=== PATIENT | female | born 1945 | race Caucasian/White ===

== ENCOUNTER 2022-10-12 13:43 | Outpatient (REF) | payer MEDICARE, OTHER, SELFPAY ==
[2022-10-13 13:09] LABS: Influenza A PCR POSITIVE (Negative); Influenza B PCR NEGATIVE (Negative); Resp Syncy Virus RNA Qual PCR NEGATIVE (Negative); SARS COV2 PCR INHOUSE NEGATIVE (Negative)
== END 2022-10-12 13:44 | disposition home or self-care (01) ==
LOC: HO.LNP 13:43
PROVIDERS: Visit Provider Nurse Practitioner Family
DX: Z20.822 Contact with and (suspected) exposure to COVID-19 (principal); J20.9 Acute bronchitis, unspecified
CPT/HCPCS: 0241U

== ENCOUNTER 2023-08-28 16:52 | Emergency (ER) | payer MEDICARE, OTHER, SELFPAY ==
--- NOTE | ~2023-08-28 | CT_ITS ---
EXAMINATION: CT HEAD WITHOUT CONTRAST CT CERVICAL SPINE WITHOUT CONTRAST. CLINICAL INFORMATION: Head strike. On Plavix. COMPARISON: No relevant prior imaging. TECHNIQUE: Airplane Gas Tank Liner Assembler images were obtained. CT imaging of the head and cervical spine was performed without contrast. Data was reformatted into multiplanar images at the acquisition workstation. This CT examination was performed using dose optimization techniques as appropriate, including one or more of the following: Automated exposure control, iterative reconstruction, and adjustment of technique factors (mA and/or kVp) according to patient size (this includes techniques or standardized protocols for targeted exams where dose is matched to indication/reason for exam). Fleischner Society criteria for the followup of incidental pulmonary nodules was implemented if appropriate. DLP: 785 mGy-cm. FINDINGS: Head: There is no acute intracranial hemorrhage or abnormal extra-axial collection. No intracranial mass effect or midline shift. Lateral and third ventricles are normal. No hydrocephalus. Laguna-white matter differentiation is preserved and there is no evidence of acute territorial infarct. The calvarium and skull base are intact. Mastoid air cells and middle ear cavities are well-aerated. No active paranasal sinus disease. Cervical spine: There is nonspecific reversal of the cervical lordosis. Alignment is otherwise normal. Vertebral heights are preserved. There is no acute fracture. No abnormal prevertebral soft tissue swelling. 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 There is loss of intervertebral disc height with associated sclerotic degenerative endplate changes and hypertrophic disc osteophyte spurring at multiple levels. Grossly no spinal canal compromise. Uncovertebral joint spurring in conjunction with facet degenerative change causes mild to moderate neuroforaminal encroachment at multiple levels. Visualized soft tissues of neck are normal. Lung apices are clear. CT/CT head/brain wo IV con IMPRESSION: Head: No acute intracranial hemorrhage. Cervical Spine: There is multilevel degenerative spondylosis of the cervical spine. No acute fracture and no posttraumatic spinal subluxation.
--- NOTE | ~2023-08-28 | CT_ITS ---
EXAMINATION: CT HEAD WITHOUT CONTRAST CT CERVICAL SPINE WITHOUT CONTRAST. CLINICAL INFORMATION: Head strike. On Plavix. COMPARISON: No relevant prior imaging. TECHNIQUE: Backer Up images were obtained. CT imaging of the head and cervical spine was performed without contrast. Data was reformatted into multiplanar images at the acquisition workstation. This CT examination was performed using dose optimization techniques as appropriate, including one or more of the following: Automated exposure control, iterative reconstruction, and adjustment of technique factors (mA and/or kVp) according to patient size (this includes techniques or standardized protocols for targeted exams where dose is matched to indication/reason for exam). Fleischner Society criteria for the followup of incidental pulmonary nodules was implemented if appropriate. DLP: 785 mGy-cm. FINDINGS: Head: There is no acute intracranial hemorrhage or abnormal extra-axial collection. No intracranial mass effect or midline shift. Lateral and third ventricles are normal. No hydrocephalus. Laguna-white matter differentiation is preserved and there is no evidence of acute territorial infarct. The calvarium and skull base are intact. Mastoid air cells and middle ear cavities are well-aerated. No active paranasal sinus disease. Cervical spine: There is nonspecific reversal of the cervical lordosis. Alignment is otherwise normal. Vertebral heights are preserved. There is no acute fracture. No abnormal prevertebral soft tissue swelling. 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 There is loss of intervertebral disc height with associated sclerotic degenerative endplate changes and hypertrophic disc osteophyte spurring at multiple levels. Grossly no spinal canal compromise. Uncovertebral joint spurring in conjunction with facet degenerative change causes mild to moderate neuroforaminal encroachment at multiple levels. Visualized soft tissues of neck are normal. Lung apices are clear. CT/CT cervical spine wo IV con IMPRESSION: Head: No acute intracranial hemorrhage. Cervical Spine: There is multilevel degenerative spondylosis of the cervical spine. No acute fracture and no posttraumatic spinal subluxation.
[2023-08-28 17:00] VITALS: BP 130/60; PULSE 64; RESP 20; TEMP 36.9; O2SAT 97; BMI 18.5
--- NOTE | 2023-08-28 17:01 | ED.GENADULT ---
HPI - General Adult General Chief complaint: Fall Stated complaint: fell 08/28 hit head, on thinners covid+ Time Seen by Provider: 08/28/23 19:37 Source: patient and family (patient's ) Mode of arrival: ambulatory Limitations: no limitations History of Present Illness HPI narrative: Patient is a 78 year old assigned female at with a history of anti coagulation medication use and COVID-19 infection presenting to the emergency department today after a fall. Patient states that she rolled out of bed and hit her head. Patient states that she did not have any loss of consciousness with the incident. Patient denies any dizziness, lightheadedness, abdominal pain, nausea, vomiting, fever, chills, blurry vision, double vision, loss of vision, chest pain, difficulty breathing, shortness of breath, back pain, night sweats, pain with urination, increased urinary frequency, increased urinary urgency, blood in her urine or stool, syncope or a near syncopal episode, bowel incontinence, bladder incontinence, bowel retention, bladder retention, or any other complaints at this time. Onset (ago): day(s) (1) Location: head Severity: mild Severity scale (1-10): 3 Quality: aching and dull Pain Consistency: constant Relieving factors: none Exacerbating factors: none Associated symptoms: denies other symptoms Treatments prior to arrival: none Related Data Home Medications Medication Instructions Recorded Confirmed atorvastatin 10 mg tablet mg PO DAILY 10/12/22 10/12/22 carvedilol 6.25 mg tablet mg PO BID 10/12/22 10/12/22 clopidogrel 75 mg tablet mg PO DAILY 10/12/22 10/12/22 levothyroxine 50 mcg tablet mcg PO DAILY 10/12/22 10/12/22 lisinopril 5 mg tablet mg PO DAILY 10/12/22 10/12/22 Previous Rx's Medication Instructions Recorded prednisone 20 mg tablet 40 mg (2 x 20 mg) PO DAILY 5 days 10/12/22 #10 tabs oseltamivir 75 mg capsule (Tamiflu) 75 mg PO BID 5 days #10 caps 10/13/22 Allergies Allergy/AdvReac Type Severity Reaction Status Date / Time No Known Allergies Allergy Verified 10/12/22 13:56 Review of Systems Constitutional: Constitutional: Reports no additional constitutional complaints, Denies chills, Denies fever(s), Reports headache(s) and Denies night sweats Eyes: Eyes: Reports no additional eye complaints, Denies blurry vision, Denies change in vision, Denies diplopia, Denies eye discharge, Denies loss of vision and Denies eye pain ENT: Denies dizziness and Reports headache(s) Cardiovascular: Cardiovascular: Reports no additional cardiovascular complaints, Denies chest pain, Denies lightheadedness, Denies Loss of Consciousness and Denies dyspnea Respiratory: Respiratory: Reports no additional respiratory complaints and Denies dyspnea Gastrointestinal: Gastrointestinal: Reports no additional gastrointestinal complaints, Denies abdominal pain, Denies melena, Denies hematochezia, Denies change in bowel habits and Denies change in stool character Genitourinary: Genitourinary: Denies hematuria, Denies urinary frequency, Denies dysuria, Denies urinary incontinence, Denies urinary hesitancy and Denies urinary urgency Musculoskeletal: Musculoskeletal: Reports no additional musculoskeletal complaints, Denies numbness and Denies tingling Neurologic: Denies dizziness, Reports headache(s), Denies loss of vision, Denies numbness and Denies tingling Psychiatric: Psychiatric: Reports no additional psychiatric complaints Endocrine: Endocrine: Reports no additional endocrine complaints Hematologic/Lymphatic: Hematologic/Lymphatic: Reports no additional hematologic/lymphatic complaints Allergic/Immunologic: Allergic/Immunologic: Reports no additional allergic/immunologic complaints PMFSH Past Medical History Attestation statement: The following information was validated with the patient. (all information validated with the patient's ) Source: old records reviewed, obtained from family (patient's provided additional history and confirmed the history provided by the patient.) and nursing notes reviewed Social History Social History Advance Directives: No Physical Exam ED Vital Signs: Vital Signs - 24 hr 08/28/23 17:00 Temperature 98.4 F Pulse Rate 64 Respiratory Rate 20 Blood Pressure 130/60 Pulse Oximetry 97 Oxygen Delivery Method Room Air BMI result Body Mass Index 18.5 Const General: cooperative, no acute distress, alert and awake Nutritional Appearance: well nourished Orientation/consciousness: patient oriented x3 Limitations: no limitations HENMT Head: Yes normal to inspection and Yes atraumatic Ears: hearing grossly normal bilaterally and external ears normal General nose exam: Normal external nose present, no nasal discharge noted and no epistaxis Face and sinus: Yes normal facial exam, No abrasion and No laceration Mouth: Normal oral and palatal mucosa present, no drooling and no muffled voice Eyes General: appearance normal, both eyes and all related structures Periorbital: periorbital findings normal Eyelids: Yes eyelids normal Conjunctivae: conjunctivae normal Pupils: Equal, round and reactive pupils present EOM: EOMs intact bilaterally Neck Neck: Yes normal visual inspection, Yes full ROM and Yes no lymphadenopathy Chest Chest palpation & inspection: normal inspection of the chest Resp Effort & Inspection: normal respiratory effort and able to speak in complete sentences GI Inspection: Yes normal to inspection Neuro General: patient oriented x3 and moves all extremities Cranial nerves: Yes Equal, round and reactive pupils present Cognition (Neuro): normal cognition Motor exam (neuro): 5/5 motor strength present throughout Sensory Exam: Normal double simultaneous stimulation for sensation Coordination: [id number] test normal Extrem General: Yes normal to inspection, Yes full ROM and Yes capillary refill normal Psych Appearance: grossly normal Mental Status: mental status grossly normal Affect: normal affect Attitude: cooperative Thought process: Normal thought process present Thought content: Normal thought content present Insight: Good insight present (Psych) Course Course Course Narrative: RME performed by Barbara Delgado PA-C. Patient is a 78 year old assigned female at presenting to the emergency department with a fall. Patient states that she is COVID+ and fell out of her bed, hitting her head. Imaging ordered. Patient placed back in the waiting room pending room availability and results. Medical Decision Making Medical Decision Making [facility] Narrative: Patient is a 78 year old assigned female at with a history of anticoagulation use presenting to the emergency department today after a fall. Patient's physical exam was unremarkable. Patient's head and c-spine CT showed no acute process. I explained my physical exam findings as well as all test results to the patient and the patient's . I answered all questions asked by the patient and the patient's . I stressed the importance of the patient taking her medication as prescribed. I stressed the importance of the patient following up with her primary care provider. I stressed the importance of the patient returning to the emergency department immediately if her symptoms were to worsen or if she were to develop any dizziness, shortness of breath, difficulty breathing, chest pain, blurry vision, loss of vision, nausea, vomiting, abdominal pain, fever, chills, back pain, or any other complaints. Patient and the patient's verbalized agreement and understanding with this treatment plan and discharge. Differential Diagnosis Differential Diagnoses: The differential diagnosis associated with the presentation includes Head strike Fall Concussion Independent Interpretation I performed an independent interpretation of an: CT Scan Interpretation: My interpretation is in agreement with the radiologist's impression of these imaging studies. EXAMINATION: CT HEAD WITHOUT CONTRAST CT CERVICAL SPINE WITHOUT CONTRAST. CLINICAL INFORMATION: Head strike. On Plavix. COMPARISON: No relevant prior imaging. TECHNIQUE: Databases Software Consultant images were obtained. CT imaging of the head and cervical spine was performed without contrast. Data was reformatted into multiplanar images at the acquisition workstation. This CT examination was performed using dose optimization techniques as appropriate, including one or more of the following: Automated exposure control, iterative reconstruction, and adjustment of technique factors (mA and/or kVp) according to patient size (this includes techniques or standardized protocols for targeted exams where dose is matched to indication/reason for exam). Fleischner Society criteria for the followup of incidental pulmonary nodules was implemented if appropriate. DLP: 785 mGy-cm. FINDINGS: Head: There is no acute intracranial hemorrhage or abnormal extra-axial collection. No intracranial mass effect or midline shift. Lateral and third ventricles are normal. No hydrocephalus. Laguna-white matter differentiation is preserved and there is no evidence of acute territorial infarct. The calvarium and skull base are intact. Mastoid air cells and middle ear cavities are well-aerated. No active paranasal sinus disease. Cervical spine: There is nonspecific reversal of the cervical lordosis. Alignment is otherwise normal. Vertebral heights are preserved. There is no acute fracture. No abnormal prevertebral soft tissue swelling. 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 There is loss of intervertebral disc height with associated sclerotic degenerative endplate changes and hypertrophic disc osteophyte spurring at multiple levels. Grossly no spinal canal compromise. Uncovertebral joint spurring in conjunction with facet degenerative change causes mild to moderate neuroforaminal encroachment at multiple levels. Visualized soft tissues of neck are normal. Lung apices are clear. CT/CT head/brain wo IV con IMPRESSION: Head: No acute intracranial hemorrhage. Cervical Spine: There is multilevel degenerative spondylosis of the cervical spine. No acute fracture and no posttraumatic spinal subluxation. Dictated By: Constantino Riddle MD Signed By: Electronically signed by Constantino Riddle MD 08/28/23 5042 Radiology Impression Discussion of test interpretation with radiology: I have reviewed the radiologist's reading. Independent Historian Clinical information obtained from an independent historian. History obtained from or confirmed by: Spouse (patient's provided additional history and confirmed the history provided by the patient. ) Discharge Plan Discharge Clinical Impression: Fall Patient Disposition: Home, Self-Care Instructions: Fall Prevention for Older Adults (ED) Additional Instructions: Follow up with your primary care provider. Return to the emergency department immediately if your symptoms worsen or if you develop any dizziness, shortness of breath, difficulty breathing, chest pain, blurry vision, loss of vision, nausea, vomiting, abdominal pain, fever, chills, back pain, or any other complaints. Prescriptions: No Action oseltamivir [Tamiflu] 75 mg capsule 75 mg PO BID 5 Days Qty: 10 0RF levothyroxine 50 mcg tablet PO DAILY carvedilol 6.25 mg tablet PO BID lisinopril 5 mg tablet PO DAILY atorvastatin 10 mg tablet PO DAILY clopidogrel 75 mg tablet PO DAILY prednisone 20 mg tablet 40 mg PO DAILY 5 Days Qty: 10 0RF Referrals: [facility] Family [facility] [Provider Group] (Call to establish and follow up with a primary care provider. If you already have a primary care provider, please follow up with them.) [facility] [Provider [facility]] (Call to establish and follow up with a primary care provider. If you already have a primary care provider, please follow up with them.) [facility] [Provider [facility]] (Call to establish and follow up with a primary care provider. If you already have a primary care provider, please follow up with them.) Print Language: Ukrainian
== END 2023-08-28 21:21 | disposition home or self-care (01) ==
PROVIDERS: Emergency Provider Emergency Medicine
DX: S09.90XA Unspecified injury of head, initial encounter (principal); U07.1 COVID-19; R51.9 Headache, unspecified; M54.2 Cervicalgia; W06.XXXA Fall from bed, initial encounter; Y93.9 Activity, unspecified; Y92.9 Unspecified place or not applicable; Y99.9 Unspecified external cause status; Z79.899 Other long term (current) drug therapy; Z79.01 Long term (current) use of anticoagulants
CPT/HCPCS: 70450; 72125; 99282; 99284

== ENCOUNTER 2024-08-17 10:33 | Emergency (ER) | payer MEDICARE, OTHER, SELFPAY ==
--- NOTE | ~2024-08-17 | CT_ITS ---
CT MAXILLOFACIAL WITHOUT IV CONTRAST, CT HEAD WITHOUT IV CONTRAST CLINICAL INFORMATION: fall COMPARISON: 2022 TECHNIQUE: Department standard protocol. This CT examination was performed using dose optimization techniques as appropriate, variously including the following: *Automated exposure control *Adjustment of mA and/or kV according to patient size (this includes techniques or standardized protocols for targeted exams where dose is matched to indication/reason for exam; i.e. extremities or head) *Use of iterative reconstruction technique DLP: 1040 mGy-cm FINDINGS: CEREBRAL HEMISPHERES: There is no evidence of intra-axial or extra-axial mass, hemorrhage or acute infarct. BRAIN PARENCHYMA: Normal song-white matter differentiation. SUBDURAL SPACE: No bleed. BASAL GANGLIA AND PINEAL GLAND: Unremarkable VENTRICLES: Symmetric and normal in size. CEREBELLUM AND BRAINSTEM: No space-occupying mass, hemorrhage or acute infarct. CEREBELLOPONTINE ANGLES: No lesion found. ORBITS: No intraorbital mass. VESSELS: Unremarkable SKULL BASE: Unremarkable INCLUDED SINUSES AT SKULL BASE: Clear SKULL AND SKIN: There is frontal extracalvarial subcutaneous hematoma roughly 4 cm wide left of midline, no associated skull fracture or intracranial bleed. EXAMINATION: CT FACIAL BONES CLINICAL INFORMATION: Fall COMPARISON: None TECHNIQUE: CT facial bones axial sagittal and coronal Department standard protocol. This CT examination was performed using dose optimization techniques as appropriate, variously including the following: *Automated exposure control *Adjustment of mA and/or kV according to patient size (this includes techniques or standardized protocols for targeted exams where dose is matched to indication/reason for exam; i.e. extremities or head) *Use of iterative reconstruction technique FINDINGS : SKULL BASE: Included structures at skull base are normal. BONES: Bones and skull base are intact., Orbital bones, and intra-abdominal orbital structures are normal., Both right and left nasal bone, nasal spine are intact., Maxillary sinuses and maxillary bones are intact., Right and left mandibles are normal., Zygomatic arches are intact., Included cervical vertebrae is are normal. ORBITS: Globes are symmetric. Orbital structures are normal. SALIVARY GLANDS: Unremarkable SINUSES: Clear CT/CT facial bones wo IV con IMPRESSION: 1. No CT evidence of intracranial bleed. 2. No maxillofacial fracture. 3. There is frontal extracalvarial subcutaneous hematoma roughly 4 cm wide left of midline, no associated skull fracture or intracranial bleed. Electronically signed by: Nida Romero MD 08/17/2024 12:53 PM EDT RP
--- NOTE | ~2024-08-17 | XR_ITS ---
EXAMINATION: XR FOREARM, LEFT CLINICAL INFORMATION: Fall. COMPARISON: None available. TECHNIQUE: AP and lateral views of the left forearm were obtained. FINDINGS: Significant soft tissue swelling over the soft tissues dorsal to the mid forearm, measuring up to approximately 2 cm in thickness by 10 cm in length. The bones appear unremarkable. No fracture identified. Imaged portions of the elbow and wrist appear unremarkable. XR/XR forearm LT 2V IMPRESSION: Findings as above. Electronically signed by: Rangel Rainey MD 08/17/2024 12:30 PM EDT
--- NOTE | ~2024-08-17 | CT_ITS ---
EXAMINATION: CT CERVICAL SPINE WITHOUT CONTRAST CLINICAL INFORMATION: Fall. COMPARISON: August 28, 2023. TECHNIQUE: CT of the head and cervical spine were performed without intravenous contrast. Multiplanar reformats were rendered and reviewed. This CT examination was performed using dose optimization techniques as appropriate, variously including the following: *Automated exposure control *Adjustment of mA and/or kV according to patient size (this includes techniques or standardized protocols for targeted exams where dose is matched to indication/reason for exam; i.e. extremities or head) *Use of iterative reconstruction technique DLP: 1040 mGy-cm FINDINGS: The vertebral body heights appear maintained. No cervical spine fracture is seen. Straightening of the normal cervical lordosis, probably positional. The cervical alignment otherwise appears normal. 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 Moderate multilevel disc degenerative change. Mild multilevel neuroforaminal narrowing, right slightly worse than left, most notable at C7-T1. The paraspinal soft tissues appear within normal limits. Mild biapical fibrotic changes of the lungs. CT/CT cervical spine wo IV con IMPRESSION: No cervical spine fracture or traumatic malalignment identified. Electronically signed by: Rangel Rainey MD 08/17/2024 12:46 PM EDT
[2024-08-17 10:47] VITALS: BP 115/95; PULSE 59; RESP 16; TEMP 36.6; O2SAT 99; BMI 18.7
--- NOTE | 2024-08-17 11:10 | ECG_ITS ---
Test Reason : SYNCOPE Blood Pressure : / mmHG Vent. Rate : 053 BPM Atrial Rate : 053 BPM P-R Int : 178 ms QRS Dur : 088 ms QT Int : 422 ms P-R-T Axes : 087 070 059 degrees QTc Int : 395 ms Sinus bradycardia Otherwise normal ECG No previous ECGs available Referred By: Tong Guillermo Electronically Signed By:VALERIA VILLA MD
--- NOTE | 2024-08-17 11:15 | ED.FALL ---
HPI - Fall General Chief Complaint: Fall Stated Complaint: fall facial and l and r arm inj on blood thinners Time Seen by Provider: 08/17/24 10:55 Source: patient and family ( Spouse) Mode of arrival: ambulatory Limitations: no limitations History of Present Illness ED Provider: DR. Guillermo HPI Narrative: 78-year-old female came in after she fell while she was exercising on the treadmill 930 this morning patient was getting to stop the machine when unexpectedly went faster patient fell forward was too fast to protect her fall causing multiple hematomas on the face and left forearm, no LOC, no blurry vision, no headache, no open active bleeding laceration , no neck pain, no weakness, no numbness. Patient is concerned because multiple hematomas on the left forearm and on the forehead And patient is taking Plavix. Related Data Home Medications ?Medication ?Instructions ?Recorded ?Confirmed atorvastatin 10 mg tablet mg PO DAILY 10/12/22 10/12/22 carvedilol 6.25 mg tablet mg PO BID 10/12/22 10/12/22 clopidogrel 75 mg tablet mg PO DAILY 10/12/22 10/12/22 levothyroxine 50 mcg tablet mcg PO DAILY 10/12/22 10/12/22 lisinopril 5 mg tablet mg PO DAILY 10/12/22 10/12/22 Previous Rx's ?Medication ?Instructions ?Recorded prednisone 20 mg tablet 40 mg (2 x 20 mg) PO DAILY 5 days 10/12/22 #10 tabs oseltamivir 75 mg capsule (Tamiflu) 75 mg PO BID 5 days #10 caps 10/13/22 Allergies Allergy/AdvReac Type Severity Reaction Status Date / Time amoxicillin Allergy Rash Verified 08/17/24 10:53 Review of Systems Review of Systems: all other systems are reviewed and are negative Constitutional: Reports as per HPI and Reports no additional constitutional complaints Eyes: Reports as per HPI and Reports no additional eye complaints Reports system reviewed and no additional complaints, except as documented Cardiovascular: Reports as per HPI and Reports no additional cardiovascular complaints Respiratory: Reports as per HPI and Reports no additional respiratory complaints Gastrointestinal: Reports as per HPI and Reports no additional gastrointestinal complaints Genitourinary: Reports no additional female genitourinary complaints Musculoskeletal: Reports no additional musculoskeletal complaints Skin/Breast: Reports system reviewed and no additional complaints, except as docu Psychiatric: Reports no additional psychiatric complaints Endocrine: Reports no additional endocrine complaints Hematologic/Lymphatic: Reports no additional hematologic/lymphatic complaints Allergic/Immunologic: Reports no additional allergic/immunologic complaints Reports system reviewed and no additional complaints, except as documented and Reports Abnormal speech present [facility] Social History Social History Advance Directives: No Advance Directives Information Provided: Yes Physical Exam Vital Signs: Vital Signs: Last Vital Signs Temp 97.9 F 08/17/24 10:47 Pulse 59 08/17/24 10:47 Resp 16 08/17/24 10:47 BP 115/95 H 08/17/24 10:47 Pulse Ox 99 08/17/24 10:47 O2 Del Method Room Air 08/17/24 10:47 BMI result Body Mass Index 18.7 Vital signs have been reviewed and appear to be correct. Blood pressure elevated. Heart rate normal. Respiratory rate normal. Temperature normal. Oxygen saturation normal. Appearance: Alert. Oriented X3. No acute distress. Head: Normal external exam. Normocephalic. 3 x 3 cm area of hematoma to left frontal area, superficial contusion to the nose, and forehead periods Eyes: PERRLA. EOMI. Conjunctiva and sclera normal. Eyelids normal. ENT: TM's Normal. Pharynx normal. Uvula midline. Moist mucous membranes. No trismus noted. No drooling noted. No muffled voice noted. Neck: Normal inspection. Neck supple. FROM. No adenopathy. Thyroid Normal. No meningeal signs. No neck mass noted. CVS: Normal heart rate and rhythm. Heart sound normal. No murmurs noted. Pulses normal throughout. Respiratory: No respiratory distress. Painless inspiration. Breath sounds normal. No wheezes/rales/rhonchi noted. Chest nontender. No accessory muscle usage noted or decreased air movement noted. Abdomen: Soft and nontender. Bowel sounds normal in all 4 quadrants. No distention noted. No organomegaly noted. No visible injury noted. Back: No CVA tenderness. Full range of motion noted. Skin: Skin warm and dry. Normal skin color. Normal skin turgor. No rashes/lesions/lacerations noted. Extremities: left mid forearm hematoma about 3 x 4 cm with no deformity, full range of motion, neurovascularly intact. Neuro: Oriented X 3. Cranial nerve exam: II-XII are grossly intact No motor deficit. No sensory deficit. Reflexes normal. Course Reevaluation(s) Reevaluation #1: GCS of 15, normal neuro exam, normal head/ C-spine CT, facial CT shows no facial fracture. Unremarkable labs/EKG. Patient received booster update of tetanus shot. Time: 14:00 Medical Decision Making Differential Diagnosis Differential Diagnoses: The differential diagnosis associated with the presentation includes ( Mechanical fall, syncope, ACS, coagulopathy, thrombocytopenia, severe anemia, electrolyte derangement, intracranial bleed, cervical spine injury, facial fracture.) Admission/Observation Consideration of admission/observation: Escalation of care including admission/observation considered Lab Data MDM Lab Attestation statement: I reviewed the patient's lab results. Independent Interpretation I performed an independent interpretation of an: CT Scan ( head/ facial/ C-spine CT: No acute injury or pathology.) Radiology Impression Discussion of test interpretation with radiology: I have reviewed the radiologist's reading. Discharge Plan Discharge Clinical Impression: Accident due to mechanical fall without injury, Hematoma of left forearm, Traumatic hematoma of forehead Patient Disposition: Home, Self-Care Instructions: Contusion in Adults (ED) Prescriptions: No Action oseltamivir [Tamiflu] 75 mg capsule 75 mg PO BID 5 Days Qty: 10 0RF levothyroxine 50 mcg tablet PO DAILY carvedilol 6.25 mg tablet PO BID lisinopril 5 mg tablet PO DAILY atorvastatin 10 mg tablet PO DAILY clopidogrel 75 mg tablet PO DAILY prednisone 20 mg tablet 40 mg PO DAILY 5 Days Qty: 10 0RF Referrals: Tino Hernandez MD [Primary Care Provider] - Print Language: Frisian
[2024-08-17] MEDS: Diphth,Pertus(ACell),Tet Adult 0.5 ML SYRINGE IM (11:24)
[2024-08-17 11:29] LABS: MANUAL DIFF FLAG NO
[2024-08-17 11:38] LABS: Basophils Absolute Auto 0.1 X10*3/uL (0.0-0.2); Basophils Percent Auto 0.6 % (0-2); Eosinophils Absolute Auto 0.1 X10*3/uL (0.0-0.4); Eosinophils Percent Auto 1.2 % (0-4); Hemoglobin 12.4 g/dl (12.0-16.0); Imm Gran Abs Auto 0.04 X10*3/uL (0.00-0.03); Imm Gran Pct Auto 0.5 % (0.0-0.4); Lymphocytes Absolute Auto 1.5 X10*3/uL (1.2-4.9); Lymphocytes Percent Auto 17.5 % (20-40); Mean Corpuscular HGB Conc 33.5 g/dl (31.0-35.0); Mean Corpuscular Hemoglobin 31.6 pg (27.0-33.0); Mean Corpuscular Volume 94.4 fL (80.0-98.0); Mean Platelet Volume 9.8 fL (9.4-12.3); Monocytes Absolute Auto 0.6 X10*3/uL (0.1-1.2); Monocytes Percent Auto 6.6 % (2-11); Neutrophils Absolute Auto 6.2 x10*3/uL (2.0-8.3); Neutrophils Percent Auto 73.6 % (45-73); Platelet Count 210 X10*3/uL (160-400); Red Blood Count 3.92 X10*6/uL (4.20-5.50); Red Cell Distribution Width 13.4 % (11.0-16.0); White Blood Count 8.4 X10*3/uL (4.8-10.8)
[2024-08-17 11:44] LABS: Anion Gap 14 (12-20); Blood Urea Nitrogen 12 mg/dL (9-16); Calcium 9.8 mg/dL (8.4-10.2); Carbon Dioxide 24 mmol/L (22-29); Chloride 100 mmol/L (96-108); Creatinine Clr Calc Pharmacy 48.3; Estimated Glomerular Filt Rate > 60; Glucose Random 94 mg/dL (60-115); Potassium 4.6 mmol/L (3.3-5.1); Sodium 133 mmol/L (135-145)
[2024-08-17 11:45] LABS: Partial Thromboplastin Time 35.1 SEC (26.0-36.8)
[2024-08-17 11:49] LABS: Troponin-I High Sensitivity 7.1 ng/L (<3.5-17.0)
--- NOTE | 2024-08-17 11:51 | PC.NURSE ---
patient arrives ambulatory with steady gait through external triage after sustaining a mechanical fall on her treadmill this morning. patient states she went to turn the treadmill off to get off and instead it sped up and caused her to fall, hitting her face and arms. patient with superficial lacerations noticed tot bridge of nose and forehead. also has some scrapes noted to bilateral arms. patient with large hematoma noted to left forearm and states she is taking plavix. patient is alert and oriented x4, denies LOC or dizziness or chest pain, states she feels silly for falling but denies any other complaints at this time. 18g IV placed by this RN in left forearm, patient provided with ice pack for comfort. blood work drawn and sent to lab, patient offering no comlaints at this time to this RN.
[2024-08-17 12:00] VITALS: BP 138/76; PULSE 98; RESP 18; TEMP 37.2; O2SAT 98
--- NOTE | 2024-08-17 12:55 | PC.NURSE ---
patient resting comfortably on stretcher, awaiting CT results at this time.
[2024-08-17 15:10] VITALS: BP 106/61; PULSE 76; RESP 19; TEMP 36.7; O2SAT 94
[2024-08-17 16:19] VITALS: BP 106/61; PULSE 76; RESP 19; TEMP 36.7; O2SAT 94
== END 2024-08-17 16:20 | disposition home or self-care (01) ==
PROVIDERS: Emergency Provider Emergency Medicine; PCP Internal Medicine
DX: S00.83XA Contusion of other part of head, initial encounter (principal); S50.12XA Contusion of left forearm, initial encounter; W31.89XA Contact with other specified machinery, initial encounter; Y93.A1 Activity, exercise machines primarily for cardiorespiratory conditioning; Y92.019 Unspecified place in single-family (private) house as the place of occurrence of the external cause; Y99.9 Unspecified external cause status; Z79.02 Long term (current) use of antithrombotics/antiplatelets; Z23 Encounter for immunization
CPT/HCPCS: 36415; 70450; 70486; 72125; 73090; 80048; 84484; 85025; 85610; 85730; 90471; 90715; 93005; 99284; 99285

== ENCOUNTER → 2024-08-17 11:10 | Outpatient (BNV) | payer MEDICARE, OTHER, SELFPAY | PROVIDERS: Emergency Provider Emergency Medicine; PCP Internal Medicine; Visit Provider Internal Medicine Cardiovascular Disease | DX: R00.1 Bradycardia, unspecified (principal) | CPT/HCPCS: 93010 ==